=== PATIENT | female | born 1970 | race Two or more races ===

== ENCOUNTER 2016-09-15 14:07 | Emergency (ER) | payer MEDICAID ==
[2016-09-15 14:19] VITALS: BP 144/95; PULSE 99; RESP 18; TEMP 98.2; O2SAT 92
[2016-09-15] MEDS ORDERED: IBUPROFEN 600 MG TAB PO ONE (14:26)
--- NOTE | 2016-09-15 14:28 | EDPHY ---
H & P Time Seen by Provider: 09/15/16 14:13 HPI/ROS: This patient injured her right leg with pain extends to the ankle going down stairs today a few hours prior to arrival. She explains that the pain occurred abruptly as she but weight on the affected lower extremity. She reports moderate pain at baseline systems severe pain with walking. She notes no other exacerbating factors. She states that when it happened she heard odd sound when the injury occurred that sounded like tearing or ripping. She did not fall. She has no other complaints. She had no leg or ankle pain prior to going down the stairs today. Her family diesel pile driver operator in by private vehicle. ROS: Constitutional: No recent fevers or other complaints. HEENT: No URI symptoms or other complaints Pulmonary: No shortness of breath or chest pain. Cardiovascular: No significant swelling to the affected leg. No ecchymosis. Neuro: No numbness or tingling. 7 point ROS is otherwise negative. Past Medical/Surgical History: Chronic low back pain Hypertension GERD Smoking Status: Never smoked Physical Exam: Physical Exam Vital signs are normal. General: Pleasant moderately obese 46-year-old female and some discomfort due to right calf pain. No acute distress Eyes: Pupils equal and react to light. Extraocular motions are intact. Lungs: No respiratory distress. Cardiac: Brisk capillary refill is intact throughout. Pulses are 2+ and symmetric in the affected extremity. Skin: No rash or pallor. Extremities: Atraumatic normal except for right lower extremity Right lower extremity: Patient has tenderness to the posterior right calf. Cotter's test is negative for evidence of Achilles tenderness nor is there any change in the contour of the Achilles tendon in the affected leg. Knee exam is normal on that lower extremity with normal patella, no knee effusion. Homans is negative. Squeezing the patient's calf reproduces her symptoms. There is no swelling in the popliteal fossa. No thigh tenderness. No hip tenderness the affected side. Neuro: Alert with no sensorimotor deficits in the affected extremity. Initial differential diagnosis: Calf muscle strain, calf muscle tear, Constitutional: Initial Vital Signs Temperature (C) 36.8 C 09/15/16 14:18 Heart Rate 99 09/15/16 14:18 Respiratory Rate 18 09/15/16 14:18 Blood Pressure 144/95 H 09/15/16 14:18 O2 Sat (%) 92 09/15/16 14:18 O2 Delivery Mode Room Air Allergies/Adverse Reactions: No Known Allergies Allergy (Unverified 11/21/15 17:48) Home Medications: Medication Instructions Recorded Lidocaine 11/21/15 GABAPENTIN 09/15/16 Lisinopril 09/15/16 Methocarbamol [Robaxin 750 mg (*)] 750 - 1,500 mg PO QID PRN #30 tab 09/15/16 Zantac 09/15/16 MDM/Departure - MDM Medications Given: Discontinued Medications Ibuprofen (Motrin) 800 mg PO EDNOW ONE Stop: 09/15/16 14:27 Last Admin: 09/15/16 14:37 Dose: 800 mg ED Course/Re-evaluation: I counseled this patient regarding muscle strain explain that she may have a tear of some the calf muscles that would take longer to heal than typical muscle strain. There is no clinical evidence or risk factors for DVT. Her exam is otherwise normal. She has no lateral leg tenderness that would suggest fibular fracture/pathologic fracture. Early tenderness is in the soft tissue of the calf muscle. Given this clear history unclear findings I do not find benefit for further workup in this particular patient. I counseled regarding muscle strain in some detail. Will provide methocarbamol muscle relaxant to take in addition to nonsteroidal anti-inflammatories. - Depart Disposition: Home, Routine, Self-Care Clinical Impression: Strain of calf muscle Condition: Good Instructions: Muscle Strain (ED) Additional Instructions: Diagnosis: Calf muscle strain Plan: Ice 20 minutes at a time 3 times a day for the next 3-5 days Ibuprofen or naproxen anti-inflammatory as needed-recommend taking this regularly for the next 3-7 days Methocarbamol muscle relaxant in addition. Tylenol in addition if needed Gentle stretching each day Symptoms are likely worsened for the next 2-3 days and then should gradually improve over the next 10 days. He may have mild symptoms last for few weeks. Return for any significant worsening despite the treatment plan. Prescriptions: Methocarbamol [Robaxin 750 mg (*)] 750 - 1,500 mg PO QID PRN #30 tab PRN Reason: Muscle Spasms Referrals: Judie Blanco MD [Primary Care Provider] - As per Instructions
[2016-09-15] MEDS ORDERED: IBUPROFEN 200 MG TAB PO ONE (14:32)
== END 2016-09-15 14:38 | disposition home or self-care (01) ==
LOC: CED 14:07
DX: S86.911A Strain of unspecified muscle(s) and tendon(s) at lower leg level, right leg, initial encounter (principal); I10 Essential (primary) hypertension; X58.XXXA Exposure to other specified factors, initial encounter